=== PATIENT | male | born 1945 | race Hispanic/Latino ===

== ENCOUNTER → 2021-10-28 | Outpatient (CLI) | payer MEDICARE ==
[~2021-10-28] MED LIST: IOPAMIDOL 370 MG/ML 200 ML INFUS..BTL INJ ONE; SODIUM CHLORIDE 0.9% 250ML 250 ML ONE
[2021-10-28 14:34] LABS: CREATININE, SERUM 0.82 mg/dL (0.72-1.25)
== END ==
LOC: CT 13:21
PROVIDERS: ATTEND Urology
DX: R31.0 Gross hematuria (principal)
CPT/HCPCS: 36415; 74178; 82565; 84520; J7050; Q9967

== ENCOUNTER → 2022-12-28 | Outpatient (CLI) | payer MEDICARE | LOC: US 07:48 | PROVIDERS: ATTEND Urology | DX: R31.21 Asymptomatic microscopic hematuria (principal) | CPT/HCPCS: 74018; 76770 ==